=== PATIENT | male | born 1985 | race Caucasian/White ===

== ENCOUNTER 2016-11-26 18:03 | Emergency (ER) | payer BC ==
[2016-11-26 18:26] VITALS: TEMP 98.7
--- NOTE | 2016-11-26 19:00 | ED ---
General Adult HPI - General Chief complaint: Wound/Laceration Stated complaint: LACERATION LEFT EYE Time Seen by Provider: 11/26/16 18:28 Source: patient, RN notes reviewed Mode of arrival: ambulatory Limitations: no limitations - History of Present Illness Initial comments: This is a 31-year-old male who presents with the laceration to the left side face. Patient states he was putting together a trampoline and one of the metal poles came up and hit him in the side of the face. 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 Patient denies any eye pain. Patient states he is up-to-date on his tetanus shot. Patient denies any recent fever, chills, shortness breath, chest pain, abdominal pain, nausea/vomiting/diarrhea, back pain, numbness, tingling, hematuria, headache, or visual changes, or any other complaints. - Related Data Home Medications Medication Instructions Recorded Confirmed No Known Home Medications [No 11/26/16 11/26/16 Known Home Medications] Allergies Allergy/AdvReac Type Severity Reaction Status Date / Time No Known Allergies Allergy Verified 11/26/16 18:32 Review of Systems ROS Statement: Those systems with pertinent positive or pertinent negative responses have been documented in the HPI. ROS Other: All systems not noted in ROS Statement are negative. 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 History of Any Multi-Drug Resistant Organisms: None Reported Past Surgical History: No Surgical Hx Reported Past Psychological History: No Psychological Hx Reported Smoking Status: Current every day smoker Past Alcohol Use History: Rare Past Drug Use History: None Reported General Exam - General Exam Comments Initial Comments: General: The patient is awake and alert, in no distress, and does not appear acutely ill. Eye: Patient is legally blind in his left eye. Pupils are equal, round and reactive to light, extra-ocular movements are intact. No nystagmus. There is normal conjunctiva bilaterally. No signs of icterus. Neck: The neck is supple, there is no tenderness or JVD. Cardiovascular: There is a regular rate and rhythm. No murmur, rub or gallop is appreciated. Respiratory: Lungs are clear to auscultation, respirations are non-labored, breath sounds are equal. No wheezes, stridor, rales, or rhonchi. Musculoskeletal: Normal ROM, no tenderness. Strength 5/5. Sensation intact. Radial pulses equal bilaterally 2+. Neurological: A&O x 3. CN II-XII intact, There are no obvious motor or sensory deficits. Coordination appears grossly intact. Speech is normal. Skin: There is an approximately 1.5 cm and 0.5 cm laceration to the lateral aspect of the left eyebrow. Skin is warm and dry. Psychiatric: Cooperative, appropriate mood & affect, normal judgment. Limitations: no limitations Course Vital Signs 11/26/16 11/26/16 18:23 20:14 Temperature 98.7 F 98.7 F Pulse Rate 91 78 Respiratory 17 18 Rate Blood Pressure 133/82 136/68 O2 Sat by Pulse 96 99 Oximetry Medical Decision Making - Medical Decision Making This is a 31-year-old male patient to laceration to left sided face. On physical exam patient is neurologically intact. Patient states he is up-to- date on his tetanus shot. There are approximately 1.5 cm and 0.5cm lacerations to the lateral aspect of the left eyebrow. The skin was anesthetized with 1% lidocaine. The laceration was then cleansed and irrigated with normal saline. The wound was inspected, and there was no evidence of injury to deep structures. No foreign body was noted in the wound. A total of 9 skin sutures were placed utilizing 6-0 Ethilon. Laceration is approx 1.5 and 0.5 cm. Proparacaine was used to numb the eye and fluorescein stain was applied. Right eye viewed under Fowler lamp. No corneal abrasion noted. No hyphema, no hypopyon. No foreign body noted with observation or with eyelid eversion. Discussed that sutures need to come out in 5 days. I discussed that rinsing and showering are okay but to avoid submerging the wound in water. Discussed over- the-counter Tylenol and Motrin as needed for any pain. I discussed use of topical Neosporin. I discussed return parameters and signs of infection. Discussed that patient should follow up with PCP in one to 2 days or return to the [facility] for any worsening symptoms or any further concerns. Patient was receptive to this plan patient was discharged home. Disposition Clinical Impression: Laceration Disposition: HOME SELF-CARE Condition: Good Instructions: Laceration (ED), Care For Your Stitches (ED) Additional Instructions: Please have sutures removed in 5 days. Please use Tylenol or Motrin for any pain. May apply Neosporin to the area. Please do not submerge and water but rinsing and showering are okay. May use ice to the area. Please watch for signs and symptoms of infection such as erythema, tenderness, swelling or any purulent drainage. Please follow-up with family doctor in the next 2 days of symptoms have not improved. Please return to emergency room if the symptoms increase or worsen or for any other concerns. Referrals: Jodee Parry MD [Primary Care Provider] - 1-2 days Donna Nguyen MD [STAFF PHYSICIAN] - 1-2 days Yanira Araujo III, MD [STAFF PHYSICIAN] - 1-2 days Time of Disposition: 20:18
[2016-11-26 20:15] VITALS: BP 136/68; PULSE 78; RESP 18
[2016-11-26] MEDS ORDERED: PROPARACAINE 0.5% OPHTH DROPS 15 ML BTL LEFT EYE STA (20:20)
== END 2016-11-26 20:23 | disposition home or self-care (01) ==
LOC: EC 18:03
DX: S01.112A Laceration without foreign body of left eyelid and periocular area, initial encounter (principal); H54.42 Blindness, left eye, normal vision right eye; F17.200 Nicotine dependence, unspecified, uncomplicated; W22.8XXA Striking against or struck by other objects, initial encounter; Y92.009 Unspecified place in unspecified non-institutional (private) residence as the place of occurrence of the external cause
CPT/HCPCS: 12011; 99282

== ENCOUNTER 2017-04-30 08:26 | Emergency (ER) | payer BC ==
[2017-04-30 08:36] VITALS: BP 129/84; PULSE 81; RESP 17; TEMP 98.1
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
--- NOTE | 2017-04-30 09:00 | XR ---
EXAMINATION TYPE: XR shoulder complete RT DATE OF EXAM: 04/30/2017 CLINICAL HISTORY: Right shoulder pain after injury yesterday. TECHNIQUE: Three views of the right shoulder are obtained. COMPARISON: Right shoulder x-ray October 09, 2012 FINDINGS: There is no acute fracture/dislocation evident in the right shoulder. The acromioclavicul ar and glenohumeral joint spaces appear within normal limits. The visualized ribs are intact and unr emarkable. No significant change from prior. IMPRESSION: There is no acute fracture or dislocation in the right shoulder.
== END 2017-04-30 10:16 | disposition home or self-care (01) ==
LOC: EC 08:26
DX: S49.91XA Unspecified injury of right shoulder and upper arm, initial encounter (principal); F17.200 Nicotine dependence, unspecified, uncomplicated; V18.4XXA Pedal cycle driver injured in noncollision transport accident in traffic accident, initial encounter; Y93.55 Activity, bike riding
CPT/HCPCS: 99283

== ENCOUNTER 2018-06-17 08:52 | Emergency (ER) | payer OTHER, BC ==
[2018-06-17 09:03] VITALS: BP 144/84; PULSE 79; RESP 18; TEMP 98.2
--- NOTE | 2018-06-17 09:54 | ED ---
General Adult HPI - General Chief complaint: Wound/Laceration Stated complaint: [facility] - rt wrist Time Seen by Provider: 06/17/18 09:38 Source: patient, RN notes reviewed Mode of arrival: ambulatory Limitations: no limitations - History of Present Illness Initial comments: Patient's 33-year-old male presenting to the emergency room today with a chief complaint of laceration to the right forearm. Patient does admit that he was at work when he was using a wrench to tighten a ballpoint slipped and he hit his forearm on the part causing this laceration. He states he does have full range of motion feels some pressure at the base of the right palm. Patient denies any other complaints or symptoms. States his tetanus is up-to-date. Patient denies any recent fever, chills, shortness of breath, chest pain, back pain, abdominal pain, nausea or vomiting, numbness or tingling, headaches or visual changes, or any other complaints. - Related Data Previous Rx's Medication Instructions Recorded Cephalexin [Keflex] 500 mg PO Q12HR 10 Days cap 06/17/18 Allergies Allergy/AdvReac Type Severity Reaction Status Date / Time No Known Allergies Allergy Verified 06/17/18 09:10 Review of Systems ROS Statement: Those systems with pertinent positive or pertinent negative responses have been documented in the HPI. ROS Other: All systems not noted in ROS Statement are negative. 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 History of Any Multi-Drug Resistant Organisms: None Reported Past Surgical History: No Surgical Hx Reported Past Psychological History: No Psychological Hx Reported Smoking Status: Current every day smoker Past Alcohol Use History: Rare Past Drug Use History: None Reported General Exam - General Exam Comments Initial Comments: General: The patient is awake and alert, in no distress, and does not appear acutely ill. Eye: There is normal conjunctiva bilaterally. No signs of icterus. Ears, nose, mouth and throat: There are moist mucous membranes and no oral lesions. Musculoskeletal: Normal ROM, no tenderness. Sensation intact. Strength 5/5. Pulses equal bilaterally 2+. Neurological: A&O x 3. CN II-XII intact, There are no obvious motor or sensory deficits. Coordination appears grossly intact. Speech is normal. Skin: Patient does have a 2 cm linear laceration running horizontally to the distal right forearm. There is evidence for a tendon laceration proximally 75% of the flexor tendons of the right forearm. Psychiatric: Cooperative, appropriate mood & affect, normal judgment. Limitations: no limitations Course Vital Signs 06/17/18 09:02 Temperature 98.2 F Pulse Rate 79 Respiratory 18 Rate Blood Pressure 144/84 O2 Sat by Pulse 97 Oximetry Procedures - Procedures Initial comment: 2 cm horizontal laceration to the right forearm. The skin was anesthetized with 1% lidocaine. The laceration was then cleansed with and irrigated with normal saline. The wound was inspected, and evidence for a partial tendon laceration to flexor region of the right wrist/forearm. No foreign body was noted in the wound. A total of 4 skin sutures were placed utilizing 4-0 nylon. Medical Decision Making - Medical Decision Making Case was discussed with orthopedic physician assistant corporate secretary Ramiro Eaton environmental conflict manager who recommends irrigating and suturing wound. Recommend starting antibiotic and following up the office over the next 2 days. Patient had wound was irrigated heavily with saline. Closed with sutures. His tetanus is up-to-date. Will be started on antibiotics. Has been placed in a short arm OCL volar splint. Neurovascular rechecked and intact. Patient is to call office for appointment today. Disposition Clinical Impression: Laceration, Tendon laceration Disposition: HOME SELF-CARE Condition: Good Instructions: Tendon Laceration (ED) Additional Instructions: Please leave splint in place to follow with orthopedics in the next 1-2 days. Please call the office for appointment today. Please use antibiotic as prescribed which are to the emergency room for any other concerns. Prescriptions: Cephalexin [Keflex] 500 mg PO Q12HR 10 Days cap Is patient prescribed a controlled substance at d/c from ED?: No Referrals: Jodee Parry MD [Primary Care Provider] - 1-2 days Moises Asif DO [Doctor of Osteopathic Medicine] - 1-2 days Time of Disposition: 11:29
[2018-06-17] MEDS ORDERED: LIDOCAINE 1% INJ 10MG/ML (20 ML MDV) SQ STA (10:33)
[2018-06-17] MEDS ORDERED: CEPHALEXIN 500MG STARTER PACK 4 CAP BTL PO STA (11:27)
== END 2018-06-17 11:46 | disposition home or self-care (01) ==
LOC: EC 08:52
DX: S56.221A Laceration of other flexor muscle, fascia and tendon at forearm level, right arm, initial encounter (principal); H54.62 Unqualified visual loss, left eye, normal vision right eye; F17.200 Nicotine dependence, unspecified, uncomplicated; W22.8XXA Striking against or struck by other objects, initial encounter; W27.8XXA Contact with other nonpowered hand tool, initial encounter; Y93.89 Activity, other specified; Y92.69 Other specified industrial and construction area as the place of occurrence of the external cause; Y99.0 Civilian activity done for income or pay
CPT/HCPCS: 99282; 29125; 12001; J2001

== ENCOUNTER → 2018-11-04 | Outpatient (CLI) | payer OTHER ==
--- NOTE | 2018-11-04 16:04 | XR ---
EXAMINATION TYPE: XR shoulder complete BILAT DATE OF EXAM: 11/04/2018 CLINICAL HISTORY: Bilateral shoulder pain. TECHNIQUE: Three views of the bilateral shoulders are obtained. COMPARISON: None. FINDINGS: There is no acute fracture/dislocation evident in either shoulder. The acromioclavicular and glenohumeral joint spaces appear within normal limits bilaterally. The visualized ribs are intac t and unremarkable bilaterally. IMPRESSION: There is no acute fracture or dislocation in either shoulder.
== END | disposition home or self-care (01) ==
LOC: RADXRMAIN 15:00
PROVIDERS: ATTEND Emergency Medicine
DX: M13.811 Other specified arthritis, right shoulder (principal); M13.812 Other specified arthritis, left shoulder

== ENCOUNTER 2019-02-08 11:19 | Emergency (ER) | payer BC ==
[2019-02-08 11:22] VITALS: RESP 18
[2019-02-08] MEDS ORDERED: MORPHINE SULFATE 4 MG/ML SYRINGE IM STA (11:50)
[2019-02-08] MEDS ORDERED: KETOROLAC 30 MG/ML 1 ML VIAL IM STA (11:51)
--- NOTE | 2019-02-08 11:53 | ED ---
General Adult HPI - General Chief complaint: Back Pain/Injury Stated complaint: back pain Time Seen by Provider: 02/08/19 11:28 Source: patient Mode of arrival: ambulatory Limitations: no limitations - History of Present Illness Initial comments: Dictation was produced using [employer] dictation software. please excuse any grammatical, word or spelling errors. Chief Complaint: 33-year-old male withpast medical history presents with acute on chronic back pain. History of Present Illness: Patient is a 33-year-old male he works in a job where he lifts a lot. Patient states that over the last 5 days he's been working more than usual. States that this morning he woke up with really bad back pain. He states the back pain is localized to his lower lumbar area. Reports that he's been living with this back pain for the last several weeks. He reports that his pain is usually better when he moves around and stays warm however when he sits for prolonged periods of time he feels worse. Denies any fever, chills or night sweats. Patient has never been evaluated for back pain in the past. He did see his PCP recently was given pain medications however ran out. Denies any fever, chills or night sweats. No history of IV drug abuse. No medical problems. No history of diabetes. The ROS documented in this emergency department record has been reviewed and confirmed by me. Those systems with pertinent positive or negative responses have been documented in the HPI. All other systems are other negative and/or noncontributory. PHYSICAL EXAM: General Impression: Alert and oriented x3, mild distress secondary to pain HEENT: Normocephalic atraumatic, extra-ocular movements intact, pupils equal and reactive to light bilaterally, mucous membranes moist. Cardiovascular: Heart regular rate and rhythm, S1&S2 audible, no murmurs, rubs or gallops Chest: Lungs clear to auscultation bilaterally, no rhonchi, no wheeze, no rales Abdomen: Bowel sounds present, abdomen soft, non-tender, non-distended, no organomegaly Musculoskeletal: Pulses present and equal in all extremities, no peripheral edema Motor: no focal deficits noted Neurological: CN II-XII grossly intact, no focal motor or sensory deficits noted Skin: Intact with no visualized rashes Psych: Normal affect and mood ED course:-year-old male with acute on chronic back pain. Given clinical presentation symptoms are likely secondary to musculoskeletal strain versus back spasms. Vital signs upon arrival are within acceptable limits. Patient given i ntramuscular analgesia. Patient is reevaluated with mild improvement of symptoms however he still does have symptoms. Patient given prescription for muscle relaxant take when necessary pain. He is given rescue analgesia. Discussed risk and benefits of opiate analgesia. He understands. Patient given referral to testing specialist. Patient clear for discharge. Patient is able to ambulate with minimal complications. - Related Data Home Medications Medication Instructions Recorded Confirmed Acetaminophen Tab [Tylenol Tab] 1,000 mg PO TID PRN 02/08/19 02/08/19 Previous Rx's Medication Instructions Recorded Cyclobenzaprine [Flexeril] 10 mg PO TID PRN #20 tab 02/08/19 HYDROcodone/APAP 5-325MG [[place] 1 tab PO Q6HR PRN 3 Days #6 tab 02/08/19 5-325] Allergies Allergy/AdvReac Type Severity Reaction Status Date / Time No Known Allergies Allergy Verified 02/08/19 11:32 Review of Systems ROS Statement: Those systems with pertinent positive or pertinent negative responses have been documented in the HPI. ROS Other: All systems not noted in ROS Statement are negative. 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, chronic back pain History of Any Multi-Drug Resistant Organisms: None Reported Past Surgical History: No Surgical Hx Reported Past Psychological History: No Psychological Hx Reported Smoking Status: Current every day smoker Past Alcohol Use History: Rare Past Drug Use History: None Reported General Exam Limitations: no limitations Course Vital Signs 02/08/19 11:20 Temperature 98.5 F Pulse Rate 101 H Respiratory 18 Rate Blood Pressure 126/75 O2 Sat by Pulse 99 Oximetry Disposition Clinical Impression: Mechanical back pain Disposition: HOME SELF-CARE Condition: Good Instructions (If sedation given, give patient instructions): Acute Low Back Pain (ED) Prescriptions: Cyclobenzaprine [Flexeril] 10 mg PO TID PRN #20 tab PRN Reason: back pain HYDROcodone/APAP 5-325MG [[place] 5-325] 1 tab PO Q6HR PRN 3 Days #6 tab PRN Reason: Severe Pain Is patient prescribed a controlled substance at d/c from ED?: Yes If prescribed controlled substance>3 days was MAPS reviewed?: Prescribed <3 Days Referrals: Andrea Lorenzo DO [Doctor of Osteopathic Medicine] - 1-2 days Time of Disposition: 13:43
[2019-02-08 13:56] VITALS: BP 115/84; PULSE 83; TEMP 98.3
== END 2019-02-08 13:56 | disposition home or self-care (01) ==
LOC: EC 11:19
DX: M54.5 Low back pain (principal); F17.200 Nicotine dependence, unspecified, uncomplicated
CPT/HCPCS: 99283; 96372 ×2; J2270; J1885

== ENCOUNTER 2023-02-02 16:55 | Observation (INO) | payer OTHER, BC ==
[2023-02-02] MEDS ORDERED: HALOPERIDOL LACTATE 5 MG/ML 1 ML VIAL IM STA (17:17)
[2023-02-02] MEDS ORDERED: LORazepam 2 MG/ML INJ IM STA (17:17)
[2023-02-02] MEDS ORDERED: diphenhydrAMINE 50 MG/ML 1 ML VIAL IM STA (17:18)
[2023-02-02] MEDS ORDERED: SODIUM CHLORIDE 0.9% 1,000 ML IV STA ×2 (17:19→21:52)
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
[2023-02-02 18:43] LABS: Basophils # (A) 0.1 k/uL (0-0.2); Basophils % (A) 1 %; Eosinophils # (A) 0.1 k/uL (0-0.7); Eosinophils % (A) 1 %; HGB 17.3 gm/dL (13.0-17.5); Lymphocytes # (A) 1.7 k/uL (1.0-4.8); Lymphocytes % (A) 17 %; MCHC 34.6 g/dL (31.0-37.0); MCV 92.4 fL (80.0-100.0); Mean Platelet Volume 7.7; Monocytes # (A) 0.4 k/uL (0-1.0); Monocytes % (A) 4 %; Neutrophils # (A) 7.5 k/uL (1.3-7.7); Neutrophils % (A) 76 %; Platelet Count 214 k/uL (150-450); RBC 5.41 m/uL (4.30-5.90); RDW 13.4 % (11.5-15.5); WBC 9.9 k/uL (3.8-10.6)
[2023-02-02 18:56] LABS: African American GFR (CKD) 81 (>60 ml/min/1.73 sqM); Albumin 4.2 g/dL (3.5-5.0); Anion Gap 17 mmol/L; Blood Urea Nitrogen 18 mg/dL (9-20); Calcium 8.6 mg/dL (8.4-10.2); Carbon Dioxide 20 mmol/L (22-30); Chloride 107 mmol/L (98-107); Glucose 90 mg/dL (74-99); Non-African American GFR(CKD) 70 (>60 ml/min/1.73 sqM); Potassium 3.9 mmol/L (3.5-5.1); Sodium 144 mmol/L (137-145); Total Protein 6.6 g/dL (6.3-8.2)
[2023-02-02 18:59] LABS: ALT 33 U/L (4-49); AST 32 U/L (17-59); Acetaminophen <10.0 ug/mL; Alkaline Phosphatase 54 U/L (38-126); Creatine Kinase 450 U/L (55-170); Magnesium 2.3 mg/dL (1.6-2.3); Salicylate <1.0 mg/dL; Total Bilirubin 0.6 mg/dL (0.2-1.3)
[2023-02-02 19:08] LABS: Alcohol 185 mg/dL
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
[2023-02-02] MEDS ORDERED: LORazepam 2 MG/ML INJ IV STA ×2 (20:22)
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
[2023-02-02] MEDS ORDERED: ACETAMINOPHEN TAB 325 MG TAB PO PRN (22:11)
[2023-02-02] MEDS ORDERED: ONDANSETRON 4 MG/2 ML VIAL IVP PRN (22:11)
[2023-02-02] MEDS ORDERED: NALOXONE 0.4 MG/ML 1 ML VIAL IV PRN (22:11)
[2023-02-02 22:24] LABS: Amphetamine Screen,Urine Detected (NotDetected); Barbiturate Screen,Urine Not Detected (NotDetected); Benzodiazepines Screen,Urine Detected (NotDetected); Cocaine Screen,Urine Detected (NotDetected); Methadone Screen, Urine Not Detected (NotDetected); Opiate Screen,Urine Not Detected (NotDetected); Oxycodone Screen, Urine Not Detected (NotDetected); Phencyclidine Screen,Urine Not Detected (NotDetected); Tricyclic Antidepressant,Urine Not Detected (NotDetected); Urn Cannabinoid Scrn Not Detected (NotDetected)
[2023-02-02] MEDS ORDERED: LORazepam 2 MG/ML INJ IV PRN ×2 (23:12)
[2023-02-02] MEDS ORDERED: THIAMINE 100 MG/ML 2 ML VIAL IM STA (23:12)
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
[2023-02-03] MEDS ORDERED: SODIUM CHLORIDE 0.9% 1,000 ML IV STA (01:35)
[2023-02-03 02:29] LABS: Basophils # (A) 0.1 k/uL (0-0.2); Basophils % (A) 1 %; Eosinophils # (A) 0.3 k/uL (0-0.7); Eosinophils % (A) 3 %; HCT 49.3 % (39.0-53.0); HGB 16.5 gm/dL (13.0-17.5); Lymphocytes # (A) 3.4 k/uL (1.0-4.8); Lymphocytes % (A) 34 %; MCH 31.7 pg (25.0-35.0); MCHC 33.4 g/dL (31.0-37.0); Mean Platelet Volume 7.5; Monocytes # (A) 0.7 k/uL (0-1.0); Monocytes % (A) 7 %; Neutrophils # (A) 5.4 k/uL (1.3-7.7); Neutrophils % (A) 54 %; Platelet Count 182 k/uL (150-450); RBC 5.19 m/uL (4.30-5.90); RDW 13.6 % (11.5-15.5); WBC 9.9 k/uL (3.8-10.6)
[2023-02-03 02:45] LABS: African American GFR (CKD) >90 (>60 ml/min/1.73 sqM); Anion Gap 10 mmol/L; Blood Urea Nitrogen 16 mg/dL (9-20); Calcium 8.2 mg/dL (8.4-10.2); Carbon Dioxide 25 mmol/L (22-30); Chloride 108 mmol/L (98-107); Glucose 69 mg/dL (74-99); Non-African American GFR(CKD) 81 (>60 ml/min/1.73 sqM); Sodium 143 mmol/L (137-145)
[2023-02-03 03:33] LABS: Creatine Kinase 876 U/L (55-170)
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
[2023-02-03] MEDS: MULTIVITAMINS, THERA 1 EACH TAB PO SCH (09:16)
[2023-02-03] MEDS: THIAMINE 100 MG TAB PO SCH (09:16)
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
[2023-02-03] MEDS: LORazepam 2 MG/ML INJ IV PRN (20:42)
[2023-02-04] MEDS: LORazepam 2 MG/ML INJ IV PRN (05:30)
[2023-02-04] MEDS ORDERED: FOLIC ACID 1 MG TAB PO SCH (09:00)
[2023-02-04] MEDS: THIAMINE 100 MG TAB PO SCH (09:16)
[2023-02-04] MEDS: MULTIVITAMINS, THERA 1 EACH TAB PO SCH (09:16)
--- NOTE | 2023-02-04 09:39 | P.PN ---
Progress Note - Text Progress Note Date: 02/04/23 Patient's resting comfortable in his bed. Patient has a sitter in place. He denies any pain anywhere. On exam vitals are stable. Abdomen soft nontender Toxic drug overdose. No evidence of any genetic injury. Patient will be discharged home per medicine. We will sign off.
[2023-02-04 12:09] VITALS: BP 120/70; PULSE 89; RESP 17; TEMP 97.7
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
== END 2023-02-04 15:05 | disposition home or self-care (01) ==
LOC: EC 16:55 → 5NMEDONC 22:11
PROVIDERS: ADMIT Internal Medicine; ATTEND Internal Medicine
DX: F10.120 Alcohol abuse with intoxication, uncomplicated (principal); F14.10 Cocaine abuse, uncomplicated; F15.10 Other stimulant abuse, uncomplicated; F13.10 Sedative, hypnotic or anxiolytic abuse, uncomplicated; E87.20 Acidosis, unspecified; R45.1 Restlessness and agitation; R79.89 Other specified abnormal findings of blood chemistry; R74.8 Abnormal levels of other serum enzymes; Y90.6 Blood alcohol level of 120-199 mg/100 ml; H54.62 Unqualified visual loss, left eye, normal vision right eye; G89.29 Other chronic pain; M54.9 Dorsalgia, unspecified; T14.8XXA Other injury of unspecified body region, initial encounter; V48.5XXA Car driver injured in noncollision transport accident in traffic accident, initial encounter; Z71.41 Alcohol abuse counseling and surveillance of alcoholic; Z71.51 Drug abuse counseling and surveillance of drug abuser
CPT/HCPCS: 96376 ×2; 96361 ×2; 96372; 96374; 99285; 36415; 93005; 83930; 80053; 80048; 82550 ×2; 83605 ×2; 83735; 85025 ×2; 80306; 80143; 80320; 80179; 72170; 71045; 72125; 70450; G0378 ×3; J2060 ×3; J1200; J1630; J3411

== ENCOUNTER 2023-08-25 10:49 | Emergency (ER) | payer BC ==
[2023-08-25 13:15] LABS: Basophils # (A) 0.1 k/uL (0-0.2); Basophils % (A) 1 %; Eosinophils # (A) 0.2 k/uL (0-0.7); Eosinophils % (A) 2 %; HCT 49.7 % (39.0-53.0); Lymphocytes # (A) 2.3 k/uL (1.0-4.8); Lymphocytes % (A) 26 %; MCH 32.3 pg (25.0-35.0); MCHC 34.3 g/dL (31.0-37.0); MCV 94.2 fL (80.0-100.0); Mean Platelet Volume 7.4; Monocytes # (A) 0.5 k/uL (0-1.0); Monocytes % (A) 5 %; Neutrophils # (A) 5.7 k/uL (1.3-7.7); Neutrophils % (A) 64 %; Platelet Count 209 k/uL (150-450); RBC 5.28 m/uL (4.30-5.90); RDW 13.1 % (11.5-15.5); WBC 8.8 k/uL (3.8-10.6)
[2023-08-25] MEDS ORDERED: KETOROLAC 15 MG/ML 1 ML VIAL IVP STA (13:26)
--- NOTE | 2023-08-25 13:26 | ED ---
Chest Pain HPI - General Chief Complaint: Chest Pain Stated Complaint: chest pain Time Seen by Provider: 08/25/23 13:11 Source: patient, RN notes reviewed, old records reviewed Mode of arrival: ambulatory Limitations: no limitations - History of Present Illness Initial Comments: This is a 30-year-old male the ER today. This patient D presents to emergency room today abigail for evaluation regards to chest pain chest pain with shortness of breath occasional cough. No trauma no travel show sick contacts no fevers. She has chest pain which is left-sided wraps on his chest is worse when he takes a deep breath. Also admits to cough MD Complaint: chest pain -: days(s) (4) Onset: during rest, during exertion Pain Location: substernal, left chest Pain Radiation: back Severity: moderate Severity scale (1-10): 5 Quality: aching Consistency: constant Improves With: nothing Worsens With: nothing Other Symptoms: cough Treatments Prior to Arrival: none - Related Data Previous Rx's Medication Instructions Recorded Folic Acid 1 mg PO DAILY #14 tab 02/04/23 Multivitamins, Thera [Multivitamin 1 each PO DAILY #30 tab 02/04/23 (formulary)] Thiamine [Vitamin B-1] 100 mg PO DAILY #30 tab 02/04/23 Azithromycin [Zithromax] 500 mg PO DAILY #5 tab 08/25/23 Allergies Allergy/AdvReac Type Severity Reaction Status Date / Time No Known Allergies Allergy Verified 08/25/23 11:01 Review of Systems ROS Statement: Those systems with pertinent positive or pertinent negative responses have been documented in the HPI. ROS Other: All systems not noted in ROS Statement are negative. 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, chronic back pain History of Any Multi-Drug Resistant Organisms: None Reported Past Surgical History: No Surgical Hx Reported Past Anesthesia/Blood Transfusion Reactions: No Reported Reaction Past Psychological History: No Psychological Hx Reported Smoking Status: Current some day smoker Past Alcohol Use History: Rare - Past Family History Father Family Medical History: No Reported History Mother Family Medical History: No Reported History General Exam Limitations: no limitations General appearance: alert, in no apparent distress Head exam: Present: atraumatic, normocephalic, normal inspection Eye exam: Present: normal appearance, PERRL, EOMI. Absent: scleral icterus, conjunctival injection, periorbital swelling ENT exam: Present: normal exam, mucous membranes moist Neck exam: Present: normal inspection. Absent: tenderness, meningismus, lymphadenopathy Respiratory exam: Present: normal lung sounds bilaterally. Absent: respiratory distress, wheezes, rales, rhonchi, stridor Cardiovascular Exam: Present: regular rate, normal rhythm, normal heart sounds. Absent: systolic murmur, diastolic murmur, rubs, gallop, clicks GI/Abdominal exam: Present: soft, normal bowel sounds. Absent: distended, tenderness, guarding, rebound, rigid Extremities exam: Present: normal inspection, full ROM, normal capillary refill. Absent: tenderness, pedal edema, joint swelling, calf tenderness Back exam: Present: normal inspection Neurological exam: Present: alert, oriented X3, CN II-XII intact Psychiatric exam: Present: normal affect, normal mood Skin exam: Present: warm, dry, intact, normal color. Absent: rash Course Vital Signs 08/25/23 08/25/23 10:58 14:58 Temperature 98.1 F 97.9 F Pulse Rate 93 87 Respiratory 16 18 Rate Blood Pressure 131/86 136/86 O2 Sat by Pulse 95 98 Oximetry - Reevaluation(s) Reevaluation #1: Medical record is reviewed Reevaluation #2: Patient symptoms are improved here in the ER Reevaluation #3: Patient informed results and questions answered Reevaluation #4: Was pt. sent in by a medical professional or institution (, PA, EMERGENCY PHYSICIAN, urgent care, hospital, or penitentiary...) When possible be specific @ -no Did you speak to anyone other than the patient for history (EMS, parent, family, police, friend...)? What history was obtained from this source @ -no Did you review nursing and triage notes (agree or disagree)? Why? @ -agree Are old charts reviewed (outside hosp., previous admission, EMS record, old EKG, old radiological studies, urgent care reports/EKG's, penitentiary records)? Report findings @ -yes Differential Diagnosis (chest pain, altered mental status, abdominal pain women, abdominal pain men, vaginal bleeding, weakness, fever, dyspnea, syncope, headache, dizziness, GI bleed, back pain, seizure, CVA, palpatations, mental health, musculoskeletal)? @ -prior EKG interpreted by me (3pts min.). @ -yes X-rays interpreted by me (1pt min.). @ -yes positive for pneumonia CT interpreted by me (1pt min.). @ -no U/S interpreted by me (1pt. min.). @ -no What testing was considered but not performed or refused? (CT, X-rays, U/S, labs)? Why? @ -none What meds were considered but not given or refused? Why? @ -none Did you discuss the management of the patient with other professionals (professionals i.e. , PA, EMERGENCY PHYSICIAN, lab, RT, psych nurse, social worker aide, obstetrics tech, teacher, employment officer, mattress spring encaser)? Give summary @ -no Was smoking cessation discussed for >3mins.? @ -no Was critical care preformed (if so, how long)? @ -no Were there social determinants of health that impacted care today? How? (Homelessness, low income, unemployed, alcoholism, drug addiction, transportation, low edu. Level, literacy, decrease access to med. care, alf, rehab)? @ -none Was there de-escalation of care discussed even if they declined (Discuss DNR or withdrawal of care, Hospice)? DNR status @ -no What co-morbidities impacted this encounter? (DM, HTN, Smoking, COPD, CAD, Cancer, CVA, ARF, Chemo, Hep., AIDS, mental health diagnosis, sleep apnea, morbid obesity)? @ -none Was patient admitted / discharged? Hospital course, mention meds given and route, prescriptions, significant lab abnormalities, going to OR and other pertinent info. @ - 38 male to the emergency department for evaluation of chest pain chest pain with shortness of breath a little symptoms resolved here improved in the ER. Patient can be discharged home Discharge Undiagnosed new problem with uncertain prognosis? @ -no Drug Therapy requiring intensive monitoring for toxicity (Heparin, Nitro, Insulin, Cardizem)? @ -no Were any procedures done? @ -no Diagnosis/symptom? @ -Chest pain and pneumonia Acute, or Chronic, or Acute on Chronic? @ -Acute Uncomplicated (without systemic symptoms) or Complicated (systemic symptoms)? @ -Complicated Side effects of treatment? @ -no Exacerbation, Progression, or Severe Exacerbation? @ -exacerbation Poses a threat to life or bodily function? How? (Chest pain, [place], [place], pneumonia, PE, COPD, DKA, ARF, appy, cholecystitis, CVA, Diverticulitis, Homicidal, Suicidal, threat to staff... and all critical care pts) @ -yes with chest pain Reevaluation #5: Differential Chest Pain: Stable Angina, Unstable Angina, STEMI, NSTEMI Aortic Dissection, Pneumothorax, Musculoskeletal, Esophageal Spasm GERD, Cholecystitis, Pancreatitis, Zoster, this is not meant to be an all-inclusive list. Chest Pain MDM - MDM 38 male to the emergency department for evaluation of chest pain chest pain with shortness of breath a little symptoms resolved here improved in the ER. Patien t can be discharged home Disposition Clinical Impression: Chest pain, Atypical chest pain, Pneumonia Disposition: HOME SELF-CARE Condition: Good Instructions (If sedation given, give patient instructions): Chest Pain (ED), Community Acquired Pneumonia (ED) Prescriptions: Azithromycin [Zithromax] 500 mg PO DAILY #5 tab Is patient prescribed a controlled substance at d/c from ED?: No Referrals: None,Stated [Primary Care Provider] - 1-2 days Time of Disposition: 14:20
[2023-08-25 13:27] LABS: INR 0.9 (<1.2); Partial Thromboplastin Time 24.4 sec (22.0-30.0)
[2023-08-25 13:39] LABS: ALT 58 U/L (4-49); AST 37 U/L (17-59); African American GFR (CKD) >90 (>60 ml/min/1.73 sqM); Albumin 4.5 g/dL (3.5-5.0); Alkaline Phosphatase 70 U/L (38-126); Anion Gap 11 mmol/L; Blood Urea Nitrogen 28 mg/dL (9-20); Calcium 9.6 mg/dL (8.4-10.2); Carbon Dioxide 26 mmol/L (22-30); Chloride 104 mmol/L (98-107); Glucose 90 mg/dL (74-99); Magnesium 2.1 mg/dL (1.6-2.3); Non-African American GFR(CKD) >90 (>60 ml/min/1.73 sqM); Potassium 4.9 mmol/L (3.5-5.1); Sodium 141 mmol/L (137-145); Total Bilirubin 0.7 mg/dL (0.2-1.3); Total Protein 7.1 g/dL (6.3-8.2)
--- NOTE | 2023-08-25 13:47 | XR ---
EXAMINATION TYPE: XR chest 2V DATE OF EXAM: 08/25/2023 1:32 PM CLINICAL INDICATION:Male, 38 years old with history of Chest Pain; [facility] COMPARISON: Chest radiographs from 02/13/2023. TECHNIQUE: XR chest 2V Frontal and lateral views of the chest. FINDINGS: Lungs/Pleura: Scattered subtle reticular and hazy opacities. No evidence of pneumothorax, focal conso lidation or pleural effusion. Pulmonary vascularity: Unremarkable. Heart/mediastinum: Cardiomediastinal silhouette is unremarkable. Musculoskeletal: No acute osseous pathology. IMPRESSION: Low lung volumes with Subtle scattered opacities which may represent an atypical pneumonia. Correlate for covid 19.
[2023-08-25] MEDS ORDERED: AZITHROMYCIN 500 MG TAB PO STA (14:18)
[2023-08-25] MEDS ORDERED: cefTRIAXone IN SWFI 1,000 MG/10 ML SYRINGE IVP STA (14:19)
[2023-08-25] MEDS ORDERED: cefTRIAXone 1,000 MG VIAL (IM USE) IM STA (14:45)
[2023-08-25 15:16] VITALS: BP 136/86; PULSE 87; RESP 18; TEMP 97.9
== END 2023-08-25 15:00 | disposition home or self-care (01) ==
LOC: EC 10:49
DX: R07.89 Other chest pain (principal); J18.9 Pneumonia, unspecified organism; F17.200 Nicotine dependence, unspecified, uncomplicated; Z20.822 Contact with and (suspected) exposure to COVID-19
CPT/HCPCS: 36415; 93005; 83880; 80053; 83690; 83735; 84484; 85025; 85610; 85730; 87636; 71046; 99285; 96372; J0696

== ENCOUNTER 2024-08-23 11:06 | Emergency (ER) | payer BC ==
--- NOTE | 2024-08-23 12:13 | ED ---
Back Pain HPI - General Source: patient, RN notes reviewed Mode of arrival: ambulatory Limitations: no limitations - History of Present Illness MD Complaint: back pain <Ismael He - Last Filed: 08/23/24 12:10> <Elder Lyle - Last Filed: 08/23/24 15:32> - General Chief Complaint: Back Pain/Injury Stated Complaint: Abd pain Time Seen by Provider: 08/23/24 11:21 - History of Present Illness Initial Comments: Quick note: This is a 39-year-old male with history of back pain presenting with low back pain x 2 days and sharp, worsening, intermittent abdominal pain x 2 weeks. States pain a located on bilateral aspects of his abdomen without provocation or known cause. Patient denies fever, chills, chest pain, dyspnea, N/V/D, constipation. Denies [id number] medication use. (Ismael He) Dictation was produced using [employer] dictation software. please excuse any grammatical, word or spelling errors. Chief Complaint: 39-year-old female with abdominal and back pain History of Present Illness: Patient 39-year-old male presents emergency department with acute on chronic abdominal and back pain. Denies any fever, chills or night sweats states it hurts in his back whenever he tries to stand and twist. He states he feels a lump in his left lower back. Patient also complaining of bilateral lower abdominal pain that seems to be worse whenever he strains. Denies any palpable mass denies any fever, chills or night sweats. No nausea vomiting or diarrhea. The ROS documented in this emergency department record has been reviewed and confirmed by me. Those systems with pertinent positive or negative responses have been documented in the HPI. All other systems are other negative and/or noncontributory. (Elder Lyle) - Related Data Previous Rx's Medication Instructions Recorded Folic Acid 1 mg PO DAILY #14 tab 02/04/23 Multivitamins, Thera [Multivitamin 1 each PO DAILY #30 tab 02/04/23 (formulary)] Thiamine [Vitamin B-1] 100 mg PO DAILY #30 tab 02/04/23 Azithromycin [Zithromax] 500 mg PO DAILY #5 tab 08/25/23 HYDROcodone/APAP 5-325MG [Roland 1 tab PO Q6HR PRN 3 Days #12 tab 08/23/24 5-325] Allergies Allergy/AdvReac Type Severity Reaction Status Date / Time No Known Allergies Allergy Verified 08/23/24 11:30 Review of Systems ROS Other: All systems not noted in ROS Statement are negative. <Ismael He - Last Filed: 08/23/24 12:10> ROS Other: All systems not noted in ROS Statement are negative. <Elder Lyle - Last Filed: 08/23/24 15:32> ROS Statement: Those systems with pertinent positive or pertinent negative responses have been documented in the HPI. 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, chronic back pain History of Any Multi-Drug Resistant Organisms: None Reported Past Surgical History: No Surgical Hx Reported Past Anesthesia/Blood Transfusion Reactions: No Reported Reaction Past Psychological History: No Psychological Hx Reported Smoking Status: Current some day smoker Past Alcohol Use History: Rare - Past Family History Father Family Medical History: No Reported History Mother Family Medical History: No Reported History <Ismael He - Last Filed: 08/23/24 12:10> General Exam Limitations: no limitations <Ismael He - Last Filed: 08/23/24 12:10> <Elder Lyle - Last Filed: 08/23/24 15:32> - General Exam Comments Initial Comments: Visual Physical Exam Vital signs reviewed General: Well-appearing, nontoxic, no acute distress. Head: Normocephalic, atraumatic Eyes: PERRLA, EOMI ENT: Airway patent Chest: Nonlabored breathing Skin: No visual rash, normal skin tone Neuro: Alert and oriented 3 Musculoskeletal: No gross abnormalities (Ismael He) PHYSICAL EXAM: General Impression: Alert and oriented x3, not in acute distress HEENT: Normocephalic atraumatic, extra-ocular movements intact, pupils equal and reactive to light bilaterally, mucous membranes moist. Cardiovascular: Heart regular rate and rhythm Chest: Able to complete full sentences, no retractions, no tachypnea Abdomen: abdomen soft, non-tender, non-distended, no organomegaly Musculoskeletal: Pulses present and equal in all extremities, no peripheral edema, palpatory tenderness to the right lower back Motor: no focal deficits noted Neurological: CN II-XII grossly intact, no focal motor or sensory deficits noted Skin: Intact with no visualized rashes Psych: Normal affect and mood (Elder Lyle) Course Vital Signs 08/23/24 11:27 Temperature 98 F Pulse Rate 95 Respiratory 18 Rate Blood Pressure 141/84 O2 Sat by Pulse 96 Oximetry Medical Decision Making <Ismael He - Last Filed: 08/23/24 12:10> - Lab Data Result diagrams: 08/23/24 13:33 08/23/24 14:30 <Elder Lyle - Last Filed: 08/23/24 15:32> - Medical Decision Making I completed the quick note portion of this chart signed FABIANO Campos (Ismael He) Was pt. sent in by a medical professional or institution ([facility], [facility] [employer], urgent care, hospital, or penitentiary...) When possible be specific @ -No Did you speak to anyone other than the patient for history (EMS, parent, family, police, friend...)? What history was obtained from this source @ -No Did you review nursing and triage notes (agree or disagree)? Why? @ -I reviewed and agree with nursing and triage notes Were old charts reviewed (outside hosp., previous admission, EMS record, old EKG, old radiological studies, urgent care reports/EKG's, penitentiary records)? Report findings @ -No old charts were reviewed Differential Diagnosis (chest pain, altered mental status, abdominal pain women, abdominal pain men, vaginal bleeding, musculoskeletal, weakness, fever, dyspnea, syncope, headache, dizziness, GI bleed, back pain, seizure, CVA, palpatations, mental health)? @ -Differential Back Pain: Strain, zoster, cauda equina syndrome, epidural abscess, vertebral osteomyelitis, discitis, fracture, subluxation, disc herniation, DJD, spinal stenosis, dissection, AAA, pancreatitis, peptic ulcer disease, pyelonephritis, kidney stone, this is not meant to be an all-inclusive list. EKG interpreted by me (3pts min.). @ -None done X-rays interpreted by me (1pt min.). @ -None done CT interpreted by me (1pt min.). @ -CT ab pelvis shows no acute processes U/S interpreted by me (1pt. min.). @ -None done What testing was considered but not performed or refused? (CT, X-rays, U/S, labs)? Why? @ -None What meds were considered but not given or refused? Why? @ -None Was smoking cessation discussed for >3mins.? @ -No Were there social determinants of health that impacted care today? How? (Homelessness, low income, unemployed, alcoholism, drug addiction, transportation, low edu. Level, literacy, decrease access to med. care, usp, rehab)? @ -No Was there de-escalation of care discussed even if they declined (Discuss DNR or withdrawal of care, Hospice)? DNR status @ -No What co-morbidities impacted this encounter? (DM, HTN, Smoking, COPD, CAD, Cancer, CVA, ARF, Chemo, Hep., AIDS, mental health diagnosis, sleep apnea, morbid obesity)? @ -None Was patient admitted / discharged? Hospital course, mention meds given and route, prescriptions, significant lab abnormalities, going to OR and other pertinent info. @ -39-year-old male presents to the emergency department abdominal and back pain. Patient has musculoskeletal component in history present illness. Vital signs stable. Physical examination is benign. Labs unremarkable. CT imaging is negative. Patient discharged advised follow-up with primary care doctor for given prescription for analgesic medications. Did you discuss the management of the patient with other professionals (professionals i.e. , PA, EXTRUDER TENDER, lab, RT, psych nurse, social service worker, real estate lawyer, teacher, low altitude air defense officer, bilingual patient support caseworker)? Give summary @ -No Was critical care preformed (if so, how long)? @ -No Undiagnosed new problem with uncertain prognosis? @ -No Drug Therapy requiring intensive monitoring for toxicity (Heparin, Nitro, Insulin, Cardizem)? @ -No Were any procedures done? @ -No Diagnosis/symptom? Acute, or Chronic, or Acute on Chronic? Uncomplicated (without systemic symptoms) or Complicated (systemic symptoms)? @ -Abdominal and back strain Side effects of treatment? @ -No Exacerbation, Progression, or Severe Exacerbation? @ -No Poses a threat to life or bodily function? How? (Chest pain, [place], [place], pneumonia, PE, COPD, DKA, ARF, appy, cholecystitis, CVA, Diverticulitis, Homicidal, Suicidal, threat to staff... and all critical care pts) @ -No (Elder Lyle) - Lab Data Lab Results 08/23/24 08/23/24 08/23/24 Range/Units 13:33 14:30 14:30 WBC 10.7 H (3.8-10.6) k/uL RBC 5.09 (4.30-5.90) m/uL Hgb 16.8 (13.0-17.5) gm/dL Hct 47.4 (39.0-53.0) % MCV 93.2 (80.0-100.0) fL MCH 33.0 (25.0-35.0) pg MCHC 35.4 (31.0-37.0) g/dL RDW 12.9 (11.5-15.5) % Plt Count 224 (150-450) k/uL MPV 7.5 Neutrophils % 66 % Lymphocytes % 25 % Monocytes % 5 % Eosinophils % 3 % Basophils % 1 % Neutrophils # 7.0 (1.3-7.7) k/uL Lymphocytes # 2.7 (1.0-4.8) k/uL Monocytes # 0.5 (0-1.0) k/uL Eosinophils # 0.3 (0-0.7) k/uL Basophils # 0.1 (0-0.2) k/uL Sodium 136 L (137-145) mmol/L Potassium 4.3 (3.5-5.1) mmol/L Chloride 100 (98-107) mmol/L Carbon Dioxide 27 (22-30) mmol/L Anion Gap 9 mmol/L BUN 22 H (9-20) mg/dL Creatinine 1.04 (0.66-1.25) mg/dL Est GFR (CKD-EPI)AfAm >90 (>60 ml/min/1.73 sqM) Est GFR (CKD-EPI)NonAf >90 (>60 ml/min/1.73 sqM) Glucose 91 (74-99) mg/dL Plasma Lactic Acid Alessandro 0.9 (0.7-2.0) mmol/L Calcium 9.1 (8.4-10.2) mg/dL Total Bilirubin 0.5 (0.2-1.3) mg/dL AST 38 (17-59) U/L ALT 66 H (4-49) U/L Alkaline Phosphatase 75 (38-126) U/L Total Protein 6.3 (6.3-8.2) g/dL Albumin 4.1 (3.5-5.0) g/dL Amylase 61 (30-110) U/L Lipase 53 (23-300) U/L Disposition <Ismael He - Last Filed: 08/23/24 12:10> Is patient prescribed a controlled substance at d/c from ED?: Yes If prescribed controlled substance>3 days was MAPS reviewed?: Prescribed <3 Days Time of Disposition: 15:27 <Elder Lyle - Last Filed: 08/23/24 15:32> Clinical Impression: Back pain Disposition: HOME SELF-CARE Condition: Fair Instructions (If sedation given, give patient instructions): Acute Low Back Pain (ED) Prescriptions: HYDROcodone/APAP 5-325MG [Roland 5-325] 1 tab PO Q6HR PRN 3 Days #12 tab PRN Reason: Severe Pain Referrals: Sandro Caballero DO [Primary Care Provider] - 1-2 days
[2024-08-23 13:46] LABS: Basophils # (A) 0.1 k/uL (0-0.2); Basophils % (A) 1 %; Eosinophils # (A) 0.3 k/uL (0-0.7); Eosinophils % (A) 3 %; HCT 47.4 % (39.0-53.0); HGB 16.8 gm/dL (13.0-17.5); Lymphocytes # (A) 2.7 k/uL (1.0-4.8); Lymphocytes % (A) 25 %; MCHC 35.4 g/dL (31.0-37.0); MCV 93.2 fL (80.0-100.0); Mean Platelet Volume 7.5; Monocytes # (A) 0.5 k/uL (0-1.0); Monocytes % (A) 5 %; Neutrophils % (A) 66 %; Platelet Count 224 k/uL (150-450); RBC 5.09 m/uL (4.30-5.90); RDW 12.9 % (11.5-15.5); WBC 10.7 k/uL (3.8-10.6)
--- NOTE | 2024-08-23 14:51 | CT ---
EXAMINATION TYPE: CT abdomen pelvis w con DATE OF EXAM: 08/23/2024 2:15 PM COMPARISON: None. CLINICAL INDICATION: Male, 39 years old with history of Diffuse abdominal and low back pain; DIFFUSE ABDOMINAL PAIN, LOW BACK PAIN TECHNIQUE: Axial CT abdomen pelvis w con;Sagittal and coronal reformats were created on a separate w orkstation. Contrast used:100 mL of Isovue 300 with IV Contrast, (none if empty) Oral contrast used: without Oral Contrast (none if empty) CT DLP: 1881.2 mGycm, Automated exposure control for dose reduction was used. FINDINGS: LOWER CHEST: Unremarkable ABDOMEN LIVER: Diffusely hypoattenuating parenchyma. GALLBLADDER AND BILE DUCTS: Unremarkable. PANCREAS: Unremarkable. SPLEEN: Unremarkable. ADRENAL GLANDS: Unremarkable. KIDNEYS AND URETERS: No evidence of hydronephrosis or renal calculus. The ureters are unremarkable. PELVIS BLADDER: No evidence for wall thickening or mass given limitations of exam. REPRODUCTIVE: Unremarkable. ABDOMEN & PELVIS STOMACH AND BOWEL: No evidence of bowel obstruction. The appendix is normal. Scattered colonic divert icula. PERITONEUM/RETROPERITONEUM: No evidence of pneumoperitoneum or free fluid. VASCULATURE: No evidence of aortic aneurysm. MUSCULOSKELETAL: No acute osseous abnormalities. Mild disc degeneration changes are present throughou t the thoracolumbar spine. LYMPH NODES: No gross evidence for lymphadenopathy. SOFT TISSUE/ABDOMINAL WALL: Unremarkable IMPRESSION: 1. No evidence for acute abdominal process. Normal appendix, no obstructive uropathy or renal contra st. 2. Hepatic steatosis. [facility], , 08/23/2024 2:49 PM
[2024-08-23 14:53] LABS: ALT 66 U/L (4-49); AST 38 U/L (17-59); African American GFR (CKD) >90 (>60 ml/min/1.73 sqM); Albumin 4.1 g/dL (3.5-5.0); Alkaline Phosphatase 75 U/L (38-126); Amylase 61 U/L (30-110); Anion Gap 9 mmol/L; Blood Urea Nitrogen 22 mg/dL (9-20); Calcium 9.1 mg/dL (8.4-10.2); Carbon Dioxide 27 mmol/L (22-30); Chloride 100 mmol/L (98-107); Glucose 91 mg/dL (74-99); Lipase 53 U/L (23-300); Non-African American GFR(CKD) >90 (>60 ml/min/1.73 sqM); Potassium 4.3 mmol/L (3.5-5.1); Sodium 136 mmol/L (137-145); Total Bilirubin 0.5 mg/dL (0.2-1.3); Total Protein 6.3 g/dL (6.3-8.2)
[2024-08-23 15:29] VITALS: BP 129/84; PULSE 90; RESP 17; TEMP 99.1
[2024-08-23] MEDS: ACET/COD 300 MG/30 MG STARTER PACK 6 TAB BTL PO STA (15:32)
[2024-08-23 15:44] LABS: Appearance,Urine Clear (Clear); Bilirubin,Urine Negative (Negative); Blood,Urine Negative (Negative); Color,Urine Colorless; Glucose,Urine (UA) Negative (Negative); Ketones,Urine Negative (Negative); Leukocyte Esterase,Urine Negative (Negative); Nitrite,Urine Negative (Negative); PH, Urine 5.5 (5.0-8.0); Protein,Urine Negative (Negative); Urobilinogen,Urine <2.0 mg/dL (<2.0)
[2024-08-23 15:46] LABS: Specific Gravity,Urine >1.050 (1.001-1.035)
== END 2024-08-23 15:40 | disposition home or self-care (01) ==
LOC: EC 11:06
DX: S39.012A Strain of muscle, fascia and tendon of lower back, initial encounter (principal); R10.9 Unspecified abdominal pain; G89.29 Other chronic pain; F17.200 Nicotine dependence, unspecified, uncomplicated; X58.XXXA Exposure to other specified factors, initial encounter
CPT/HCPCS: 36415; 80053; 82150; 83605; 83690; 85025; 81003; 74177; 99284; Q9967